=== PATIENT | female | born 1975 | race Caucasian/White ===

== ENCOUNTER → 2021-02-24 11:16 | Outpatient (CLI) | payer MEDICAID, SELFPAY ==
[2021-02-24 10:25] VITALS: BMI 20.8
[2021-02-24 12:55] LABS: Vitamin B12 744 pg/mL (211-911); Vitamin D,25 Hydroxy 28.6 ng/mL
[2021-02-24 13:00] LABS: T4 Free Direct 1.05 ng/dL (0.76-1.46); Thyroid Stim Hormone (TSH) 3.12 uIU/mL (0.358-3.74)
== END ==
PROVIDERS: Referring Provider Internal Medicine Endocrinology, Diabetes & Metabolism; Visit Provider Internal Medicine Endocrinology, Diabetes & Metabolism
DX: E06.3 Autoimmune thyroiditis (principal); M79.601 Pain in right arm; M79.602 Pain in left arm; R20.2 Paresthesia of skin; E55.9 Vitamin D deficiency, unspecified
CPT/HCPCS: 36415; 82306; 82607; 84439; 84443